=== PATIENT | male | born 1970 | race Caucasian/White ===

== ENCOUNTER → 2016-10-07 | Outpatient (CLI) | payer BC | LOC: OD 13:51 | PROVIDERS: ATTEND Student in an Organized Health Care Education/Training Program | DX: R06.00 Dyspnea, unspecified (principal); M54.2 Cervicalgia; M25.511 Pain in right shoulder; M47.892 Other spondylosis, cervical region | CPT/HCPCS: 71020; 72050 ==

== ENCOUNTER → 2016-11-02 | Outpatient (CLI) | payer BC ==
--- NOTE | 2016-11-02 15:05 | RADIOLOGY REPORT (SQ) ---
EXAM DESCRIPTION: MRI RT UPPER JOINT WITHOUT COMPLETED DATE/TIME: 11/02/2016 11:02 am REASON FOR STUDY: PERSISTENT RIGHT SHOULDER DISCOMFORT WITH DECREASED ROM COMPARISON: Recent radiographs. TECHNIQUE: Right shoulder images acquired and stored on PACS. Multiplanar imaging to include fat sen sitive sequences such as T1, water sensitive sequences such as FST2/STIR, cartilage sensitive sequenc es such as FSPD/gradient-echo sequences. LIMITATIONS: None. FINDINGS: BONE MARROW AND CORTEX: No worrisome bone lesions or marrow replacement. No occult fractur es. JOINT OR BURSAL EFFUSION: No significant joint or bursal fluid. No suggestion of loose bodies. GLENO-HUMERAL ARTICULATION: Generally normal articulation. No subluxation or dislocation. Mild subc hondral edema in the anterior glenoid, possibly associated with overlying mild chondral loss. ACROMION AND AC JOINT: Mild degenerative overgrowth. No subacromial narrowing. No large acromial spurs. ROTATOR CUFF AND INTERVAL: Thickening and mild heterogeneity, tendinosis. No high-grade partial or f ull-thickness tear evident. No cuff muscle atrophy. LABRUM AND BICEPS LABRAL COMPLEX: Superior labrum relatively intact. Normal location and appearanc e of the long head biceps tendon. REMAINDER OF LABRUM AND IGHL : Generally intact, limited assessment without better joint distention. PERIARTICULAR AND ADJACENT SOFT TISSUES: No masses or abnormal nodes. OTHER: No other significant finding. IMPRESSION: 1. Cuff tendinosis without significant tear. Other findings as above. TECHNICAL DOCUMENTATION: JOB ID: [id number] [employer]- All Rights Reserved
== END ==
LOC: RAD 10:04
PROVIDERS: ATTEND Student in an Organized Health Care Education/Training Program
DX: M75.101 Unspecified rotator cuff tear or rupture of right shoulder, not specified as traumatic (principal)

== ENCOUNTER → 2016-12-02 | Outpatient (CLI) | payer BC ==
--- NOTE | 2016-12-02 15:41 | RADIOLOGY REPORT (SQ) ---
EXAM DESCRIPTION: CT CHEST WITH COMPLETED DATE/TIME: 12/02/2016 1:10 pm REASON FOR STUDY: DYSPNEA R06.00 DYSPNEA, UNSPECIFIED COMPARISON: None. TECHNIQUE: CT scan of the chest performed using helical scanning technique with dynamic intravenous contrast injection. Images reviewed with lung, soft tissue and bone windows. Reconstructed coronal and sagittal MPR images reviewed. All images stored on PACS. All CT scanners at this facility use dose modulation, iterative reconstruction, and/or weight based d osing when appropriate to reduce radiation dose to as low as reasonably achievable (ALARA). [facility]: Dose Right [facility]: CareDose [facility]: Dose Right [facility]: Teradose 4D [facility]: M.Setek CONTRAST TYPE AND DOSE: contrast/concentration: Isovue 370.00 mg/ml; Total Contrast Delivered: 80.0 ml; Total Saline Delivered: 55.0 ml RENAL FUNCTION: Creatinine 0.8. RADIATION DOSE: Up-to-date CT equipment and radiation dose reduction techniques were employed. CTDIv ol: 19.4 mGy. DLP: 699 mGy-cm. . LIMITATIONS: None. FINDINGS: LUNGS AND PLEURA: No opacities, nodules, masses. No pneumothorax. No effusions. HILAR AND MEDIASTINAL STRUCTURES: No identified masses or abnormal nodes. HEART AND VASCULAR STRUCTURES: No aneurysm or dissection. No central pulmonary emboli. No pericardi al effusion. HARDWARE: None in the chest. UPPER ABDOMEN: No significant findings. Limited exam. THYROID AND OTHER SOFT TISSUES: No masses. No adenopathy. BONES: No significant finding. OTHER: No other significant finding. IMPRESSION: NORMAL CT OF THE CHEST WITH IV CONTRAST. TECHNICAL DOCUMENTATION: JOB ID: [id number] Quality ID # [id number]: Final reports with documentation of one or more dose reduction techniques (e.g., Au tomated exposure control, adjustment of the mA and/or kV according to patient size, use of iterative reconstruction technique) 2010 [employer]- All Rights Reserved
== END ==
LOC: RAD 12:37
PROVIDERS: ATTEND Student in an Organized Health Care Education/Training Program
DX: R06.00 Dyspnea, unspecified (principal); R05 Cough
CPT/HCPCS: 71260; 82565

== ENCOUNTER → 2019-10-27 | Outpatient (CLI) | payer BC ==
--- NOTE | 2019-10-27 15:37 | RADIOLOGY REPORT (SQ) ---
EXAM DESCRIPTION: VENOUS BILATERAL LOWER IMAGES COMPLETED DATE/TIME: 10/27/2019 3:27 pm REASON FOR STUDY: LE EDEMA R22.40 LOCALIZED SWELLING, MASS AND LUMP, UNSPECIFIED LOWER COMPARISON: None. TECHNIQUE: Dynamic and static haynes scale and color images acquired of both lower extremity venous sy stems. Selected spectral images acquired with additional compression and augmentation maneuvers. Imag es stored on PACS. LIMITATIONS: None. FINDINGS: RIGHT LEG COMMON FEMORAL AND FEMORAL: Normal phasicity, compression and augmentation. No visualized echogenic m aterial on haynes scale. No defects on color images. POPLITEAL: Normal compression and augmentation. No visualized echogenic material on haynes scale. No de fects on color images. CALF VESSELS: Limited evaluation of the peroneal vein. Normal compression and augmentation. No visu alized echogenic material on haynes scale. No defects on color image. GSV AND SSV: Normal compression. No visualized echogenic material on haynes scale. No defects on color images. ANY DEEP VENOUS INSUFFICIENCY: Not evaluated. ANY EVIDENCE OF POPLITEAL CYST: No. OTHER: No other significant finding. LEFT LEG COMMON FEMORAL AND FEMORAL: Normal phasicity, compression and augmentation. No visualized echogenic m aterial on haynes scale. No defects on color images. POPLITEAL: Normal compression and augmentation. No visualized echogenic material on haynes scale. No de fects on color images. CALF VESSELS: Limited evaluation of the peroneal vein. Normal compression and augmentation. No visu alized echogenic material on haynes scale. No defects on color images. GSV AND SSV: Normal compression. No visualized echogenic material on haynes scale. No defects on color images. ANY DEEP VENOUS INSUFFICIENCY: Not evaluated. ANY EVIDENCE POPLITEAL CYST: No. OTHER: No other significant finding. IMPRESSION: 1. Examination is somewhat limited as above. NO EVIDENCE DVT OR SVT IN EITHER LEG. TECHNICAL DOCUMENTATION: JOB ID: [id number] 2010 [employer]- All Rights Reserved Reading location - IP/workstation name: [email or web address]
--- NOTE | 2019-10-28 | XCELERA REPORT ---
[address] [address] Transthoracic Echocardiogram Report Name: PAWAN GARG Age: 49 yrs Gender: Male : 1970 Patient Status: Outpatient Patient Location: [facility] Study Date: 10/27/2019 01:16 PM Height: 74 in Weight: 330 lb BSA: 2.7 m2 Procedure: A complete two-dimensional transthoracic echocardiogram was performed (2D, M-mode, spectral and color flow Doppler). The study was technically difficult with many images being suboptimal in quality. Reason For Study: LE EDEMA Ordering Physician: HORTENCIA LARA Performed By: Augie Cheng Interpretation Summary LEFT VENTRICLE: LV Systolic function: LVEF is felt to be within normal limits. Best estimate is approximately LVEF is 60 to 65%. LV Diastolic Function: Grade II diastolic dysfunction noted. Wall motion : No definite regional wall motion abnormalities are noted. Left ventricular chamber size : is within normal limit. Left ventricular wall thickness : is increased indicative of Mild LVH. RIGHT VENTRICLE: RV systolic function : Mildly dilated Right Ventricle Size : Mildly dilated LEFT ATRIUM size : is mildly dilated. RIGHT ATRIUM size : is within normal limit. INTER ATRIAL SEPTUM : No definite atrial septal defect noted however a small PFO could be missed. AORTIC ROOT : seems to be within normal limits. Ascending aorta is not well visualized. INFERIOR VENA CAVA: was not well visualized. VALVES: MITRAL VALVE : Leaflets are mildly thickened. Mobility seems to be within normal limits. Mitral Regurgitation : Trace mitral regurgitation is noted. Mitral Stenosis: No mitral stenosis noted. Mitral valve prolapse : none noted. AORTIC VALVE: seems to be trileaflet with mild thickening but adequate excursion. Aortic stenosis : No aortic stenosis noted. Aortic regurgitation : No aortic incompetence noted. TRICUSPID VALVE : mobility and structures within normal limit. Tricuspid stenosis : no tricuspid stenosis noted. Tricuspid regurgitation : Trace tricuspid regurgitation noted. Estimated RVSP : cannot be accurately commented upon but possibly at upper limit of normal. PULMONARY VALVE : was not well visualized but no significant abnormalities suspected. Pulmonary stenosis : no pulmonary stenosis noted. Pulmonary regurgitation : no significant pulmonary regurgitation noted. MASSES AND THROMBUS : No definite intracardiac thrombus or masses are noted. PERICARDIUM: No pericardial effusion was noted. IMPRESSION : 1. Normal LVEF. 2. Mild LVH noted 3. Grade II [mild] Diastolic Dysfunction noted. 4. No significant valvular stenosis or regurgitation noted. 5. LA is mildly dilated. RV mildly dilated. RV function possibly mildly depressed. 6. Echocardiogram was technically difficult therefore clinical correlation is requested. MMode/2D Measurements & Calculations RVDd: 2.6 cm LVIDd: 4.7 cm FS: 34.3 % Ao root diam: 3.8 cm IVSd: 0.83 cm LVIDs: 3.1 cm EDV(Teich): 100.9 ml Ao root area: 11.3 cm2 LVPWd: 0.86 cm ESV(Teich): 37.0 ml LA dimension: 3.6 cm EF(Teich): 63.3 % Doppler Measurements & Calculations MV E max twan: MV P1/2t max twan: Ao V2 max: LV V1 max P.6 cm/sec 65.5 cm/sec 176.5 cm/sec 12.1 mmHg MV A max twan: MV P1/2t: 91.3 msec Ao max PG: LV V1 max: 85.9 cm/sec MVA(P1/2t): 2.4 cm2 12.5 mmHg 174.0 cm/sec MV E/A: 0.83 MV dec slope: 209.9 cm/sec2 MV dec time: 0.30 sec PA V2 max: MV P1/2t-pr_phl: 90.3 cm/sec 91.3 msec PA max P.3 mmHg : HORTENCIA LARA Shyamal
== END ==
LOC: SP 12:28
PROVIDERS: ATTEND Physician Assistant
DX: R22.40 Localized swelling, mass and lump, unspecified lower limb (principal)
CPT/HCPCS: 93306; 93970